=== PATIENT | male | born 1950 | race Caucasian/White ===

== ENCOUNTER → 2025-04-09 13:53 | Outpatient (REF) | payer OTHER, SELFPAY | LOC: RAD 13:53 | PROVIDERS: ATTENDING PHYSICIAN Internal Medicine | DX: R05.3 Chronic cough (principal); R06.02 Shortness of breath | CPT/HCPCS: 71046 ==

== ENCOUNTER 2025-07-27 09:35 | Emergency (ER) | payer OTHER, SELFPAY ==
[2025-07-27 09:49] VITALS: BP 143/94
--- NOTE | 2025-07-27 11:29 | ED.GENMED ---
History of Present Illness
General
Chief Complaint: Fall
Source: patient and family
Exam Limitations: none
Time Seen by Provider: 07/27/25 11:02
History of Present Illness
History of Present Illness:
75yoM with a history of cervical spinal stenosis presenting with his daughter for evaluation after a fall this morning. Patient was showering about 4 hours ago when he slipped in the tub and struck the left side of his head. There was no loss of
consciousness. He felt a crack in his neck and is having worsening neck pain. He also reports left hip pain. He was able to get up after the fall and drove himself to the hospital. He does not take any blood thinners. He is in the process of
scheduling a cervical laminectomy at [facility]. No reported weakness or paresthesias in the extremities. Unknown last Tdap.
Past History
Past History
ED Past Medical History: None
ED Past Surgical History: None
Phy Exam
General Physical Exam
General Presentation: well appearing and no apparent distress
General Skin: warm and dry
General Habitus: normal and elderly
General Mental: alert
ENT Exam
ENT Exam: other (Approx 4-5cm laceration noted the L parietal scalp with underlying hematoma)
Additional ENT: No cervical spine tenderness
Eye Exam
Eye Exam: PERRL and conjunctiva normal
Pulmonary Exam
Pulmonary Exam: lungs clear, no respiratory distress, no rales, chest non tender, no crackles, no rhonchi and no wheezing
Gastrointestinal Exam
Gastrointestinal Exam: non tender, soft and non distended
Neurological Exam
Neurological Exam: alert
Cathy Coma Scale
Eye Opening: Spontaneous
Verbal Response: Oriented
Motor Response: Obeys Commands
GCS Total Score: 15
Musculoskeletal Exam
Musculoskeletal Exam: other (No C/T/L spine tenderness. ROM of L hip normal.)
Skin Exam
Skin Exam: normal color and warm/dry
Psychiatric Exam
Psychiatric Exam: normal mood/affect
Course
Orders/Labs/Results
Orders:
Orders
07/27/25 09:53
Cervical Spine wo Contrast CT [CT Cervical Spine W/o Iv Contr] Urgent
Comment:
Reason For Exam: fall
Head wo Contrast CT [CT Head W/o Iv Contrast] Urgent
Comment:
Reason For Exam: fall
07/27/25 09:55
Hip, Left 2-3 Views [CR Hip - LT w/wo Pel 2-3 Vw*] Urgent
Comment:
Reason For Exam: fall
Include a pelvis x-ray?: Yes
07/27/25 11:28
Tetanus/Diphth/Acelpertussis [Adacel] 0.5 ml IM .ONCE ONE
Vital Signs
Initial and Last Documented VS:
Initial Vital Signs
Temp Pulse Resp BP Pulse Ox
98.1 F 77 16 143/94 99
07/27/25 09:49 07/27/25 09:49 07/27/25 09:49 07/27/25 09:49 07/27/25 09:49
Last Documented Vital Signs
Temp Pulse Resp BP Pulse Ox
98.1 F 77 16 143/94 99
07/27/25 09:49 07/27/25 09:49 07/27/25 09:49 07/27/25 09:49 07/27/25 11:30
Procedures
Laceration Closure
Left Scalp:
Status of Wound: clean
Size of Wound in cm: 4
Description of Wound Edges: sharp
Preparation: cleaned with saline
Anesthesia: 1% Lidocaine with epi
Wound exploration: explored to base- no FB
Type of Closure: single layer closure
Skin Closure Material: skin sonam
Number of sutures: 5
MDM/Problems Addressed
Differential Diagnosis Includes:
75yoM here after falling in the shower this morning. +Head struck and L scalp laceration noted on exam. C/o neck pain and has a history of spinal stenosis. No weakness/paresthesias of the extremities. He is awake and alert with a GCS of 15.
Differential diagnosis includes: laceration, fracture, intracranial hemorrhage
CT head, CT cervical spine and L hip x-rays obtained in triage which are negative for injuries. Scalp laceration repaired as above and Tdap update. Home wound care discussed. Patient instructed to have sonam removed in 1 week and f/u with PCP.
Patient discharged in stable condition.
*Pulse Oximetry
SaO2: 99
Oxygen Mode of Delivery: Room air
Patient hypoxic: no
*Critical Care Note
Total Time (30-74mins, 75-104mins- exclusive of procedures): Not Applicable
ED Attending Note
-
Portions of this chart may have been created with voice recognition software.� Occasional wrong word or��sound alike� substitutions may have occurred due to the inherent limitations of voice recognition software.
Discharge Plan
Departure
Patient Disposition: Home (Routine Discharge)
Date of Disposition: 07/27/25
Time of Disposition: 11:32
Patient with high blood pressure during this ER visit?: Yes
Discharge Problem:
Fall in shower, Laceration of scalp, Cervical strain
Instructions: Head Injury in Adults (DC), Laceration Repair With Brodhead (DC)
Referrals:
Cristofer Humphreys MD [Family Provider, Internal Medicine]
Activity Restrictions/Additional Instructions:
Apply ice to help with swelling. Brodhead will need to be removed in 1 week.
Please follow-up with your family doctor. Return to the ER with any new or worsening symptoms including signs of infection or new weakness/numbness of the extremities.
Interventions
Interventions:
*Risk Screen - Suicide Last Done: 07/27/25 09:49
*Neglect/Abuse Screening Last Done: 07/27/25 09:49
*Nursing Disposition Last Done: 07/27/25 12:00
ED-Musculoskeletal Assessment Last Done: 07/27/25 11:16
ED- Neurological Assessment Last Done: 07/27/25 11:16
ED-Skin Assessment Last Done: 07/27/25 11:16
Discharge Date and Time
Discharge Date/Time: 07/27/25 12:01
Print Language: DIVEHI
[2025-07-27] MEDS: ADACEL 0.5 ML IM (11:45)
== END 2025-07-27 12:01 | disposition home or self-care (01) ==
LOC: EMR 09:35
PROVIDERS: EMERGENCY PHYSICIAN Emergency Medicine; FAMILY PHYSICIAN Internal Medicine
DX: S01.01XA Laceration without foreign body of scalp, initial encounter (principal); S16.1XXA Strain of muscle, fascia and tendon at neck level, initial encounter; M25.552 Pain in left hip; W18.2XXA Fall in (into) shower or empty bathtub, initial encounter; Z23 Encounter for immunization; Y93.E1 Activity, personal bathing and showering
CPT/HCPCS: 12002; 90471; 99284; 70450; 72125; 73502; 90715